=== PATIENT | male | born 1935 | race Caucasian/White ===

== ENCOUNTER → 2024-10-23 09:11 | Outpatient (REF) | payer MEDICARE, OTHER, SELFPAY | LOC: HWRAD 09:11 | PROVIDERS: ATTENDING PHYSICIAN Internal Medicine Geriatric Medicine | DX: M45.9 Ankylosing spondylitis of unspecified sites in spine (principal); C61 Malignant neoplasm of prostate; I10 Essential (primary) hypertension; M54.2 Cervicalgia; R97.20 Elevated prostate specific antigen [PSA]; N40.0 Benign prostatic hyperplasia without lower urinary tract symptoms; E78.2 Mixed hyperlipidemia; M48.10 Ankylosing hyperostosis [Forestier], site unspecified; Z13.89 Encounter for screening for other disorder | CPT/HCPCS: 72110 ==